=== PATIENT | female | born 1960 | race Two or more races ===

== ENCOUNTER → 2024-10-11 | Outpatient (CLI) | payer OTHER, SELFPAY ==
--- NOTE | 2024-10-11 10:33 | XR_ITS ---
Examination: Knee, right , 3 views Technique: Knee AP, lateral, oblique 3 views Date and time of exam: October 11, 2024 1152 hours INDICATIONS: Knee pain 7 years. FINDINGS: Prominent osteopenia Severe narrowing kivf-te-nini medial joint space No ossified anterior posterior joint bodies subcentimeter Moderate osteoarthritis patellofemoral joint No fracture IMPRESSION: Severe narrowing medial joint space
== END | disposition home or self-care (01) ==
LOC: SDIM 10:26
PROVIDERS: PCP Family Medicine; Referring Provider Orthopaedic Surgery; Visit Provider Orthopaedic Surgery
DX: M25.861 Other specified joint disorders, right knee (principal)
CPT/HCPCS: 73562

== ENCOUNTER 2025-01-18 14:09 | Observation (INO) | payer MEDICAID, SELFPAY ==
--- NOTE | 2025-01-17 10:47 | EKG_ITS ---
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
[2025-01-17 10:57] VITALS: BMI 41.7
[2025-01-17 11:32] LABS: Basophils # (Auto) 0.0 Thou/mm3 (0.0-0.2); Basophils % (Auto) 1 % (0-2.5); Eosinophils # (Auto) 0.2 Thou/mm3 (0.0-0.5); Eosinophils % (Auto) 2 % (0-10); Hematocrit 39.8 % (36.0-46.0); Hemoglobin 13.2 g/dL (12.0-16.0); Immature Granulocytes Auto 0.02 Thou/mm3 (0.00-0.00); Lymphocytes # (Auto) 2.3 Thou/mm3 (1.0-4.8); Lymphocytes % (Auto) 27 % (10-50); Mean Corpuscular HGB Conc 33.2 g/dl (31.0-37.0); Mean Corpuscular Hemoglobin 31.3 pg (25.0-35.0); Mean Corpuscular Volume 94 fL (80-100); Monocytes # (Auto) 0.5 Thou/mm3 (0.0-0.8); Monocytes % (Auto) 6 % (0-12); Neutrophils # (Auto) 5.7 Thou/mm3 (1.8-7.7); Neutrophils % (Auto) 65 % (37-80); Nucleated Red Blood Cell # 0.00 Thou/mm3 (0.00-0.00); Nucleated Red Blood Cell % 0 /100 WBC (0); Platelet Count 269 Thou/mm3 (140-440); RDW Standard Deviation 45.4 fL (36.4-46.3); Red Blood Count 4.22 Miln/mm3 (4.00-5.20); White Blood Count 8.8 Thou/mm3 (3.6-11.0)
[2025-01-17 11:47] LABS: INR 0.9 (0.9-1.3); Partial Thromboplastin Time 26.5 Seconds (22.0-36.0); Prothrombin Time 10.4 Seconds (9.0-12.2)
[2025-01-17 11:59] LABS: Alanine Aminotransferase 20 U/L (10-49); Albumin, Serum 4.7 gm/dL (3.4-4.8); Albumin/Globulin Ratio 1.6 (1.2-2.2); Alkaline Phosphatase 88 U/L (46-116); Anion Gap 13 (7-16); Aspartate Amino Transferase 22 U/L (0-34); BUN/Creatinine Ratio 21 Ratio (12-20); Bilirubin,Total 0.3 mg/dL (0.3-1.2); Blood Urea Nitrogen 17 mg/dL (9-23); Calcium 9.5 mg/dL (8.3-10.6); Calcium (Corrected) 9.5 mg/dL (8.5-10.1); Carbon Dioxide 25.0 mMol/L (20.0-31.0); Chloride 104 mMol/L (98-107); Creatinine (Component) 0.8 mg/dL (0.6-1.3); Estimated Creatinine Clearance 69.9 mL/min (>60); Globulin 3.0 gm/dL (2.3-3.5); Glucose 93 mg/dL (74-106); Osmolality,Calculated 284 (275-295); Potassium 3.6 mMol/L (3.4-5.1); Sodium 142 mMol/L (136-145); Total Protein 7.7 gm/dL (5.7-8.2); eGFR > 60 See Note
[2025-01-18] VITALS (9 sets, daily range): BP systolic 159–180; BP diastolic 78–103; PULSE 65–80; RESP 12–20; TEMP 36.2–36.4; O2SAT 96–100; BMI 41.7; BMI 37.5
--- NOTE | 2025-01-18 13:32 | ESHP_ITS ---
RE: BROOKE ROSARIO : 1960 DATE OF ADMISSION: 01/18/2025 HISTORY AND PHYSICAL: The patient came to my office on 01/13/2025 for detailed preop history and physical examination. HISTORY OF PRESENTING COMPLAINT: The patient has got significant pain in the right knee joint. The intensity of the pain is 8-9/10. The patient is unable to walk more than 1 or 2 blocks. Pain keeps him awake at night. Quality of life and activities of daily living is affected. The patient wants something to be done about it. PAST MEDICAL HISTORY: The patient has a history of diabetes mellitus, high blood pressure. No history of asthma, seizures, chest pain, myocardial infarction, or bleeding disorder. The patient has a high cholesterol. PAST SURGICAL HISTORY: Nil. DRUG HISTORY: The patient is on; 1. Atorvastatin. 2. Hydrochlorothiazide. 3. Hydroxyzine. 4. Losartan. 5. Metformin. 6. Sertraline. 7. Januvia. ALLERGIES: NIL KNOWN. FAMILY HISTORY AND SOCIAL HISTORY: The patient denies smoking, drinking and is not working. PHYSICAL EXAMINATION: GENERAL: Normal built person. VITAL SIGNS: Pulse 88 per minute. Blood pressure is 130/76. NECK: Soft, supple. No masses felt. Trachea is centrally placed. CARDIOVASCULAR SYSTEM: First and second heart sound normal. No murmur heard. RESPIRATORY SYSTEM: Bilateral vesicular breath sounds. CHEST: Clear. ABDOMEN: Soft. No masses felt. Bowel sounds present. EXTREMITIES: Right knee examination revealed 1+ swelling and 2+ tenderness. There is genu varum deformity. Active range of motion 0-100 degrees of flexion. Patellofemoral crepitus is present. The patient walks with a limp. Neurovascularly, it is intact. DIAGNOSTIC DATA: X-ray of the right knee obtained on 10/11/2024 revealed severe osteoarthritic changes with significantly reduced medial and patellofemoral joint space. ASSESSMENT AND PLAN: Since the patient is symptomatic, therefore, a right total knee replacement was discussed and advised. Detailed discussion took place. With the help of knee model, pictures and posters, it was explained to him in detail. All questions were answered. Risks with anesthesia was explained and that includes, but not limited to reaction to anesthetic agents, cardiac arrest, rarely it may be fatal. Risk with operation includes infection and if that happens, the patient may need further surgical procedure. Other risks include delayed healing, wound dehiscence, etc. No guarantee is given regarding the outcome of the procedure and/or relief of symptoms. Sometimes rare complication happens and if that happens, the patient may need further surgical procedure. No guarantees given regarding outcome of the procedure and/or functional outcome or pain relief. Accordingly, surgery is booked for 01/18/2025 in [place]. DT: 13:00:52 TT: 13:30:00 Ref: [id number] - TID: [id number]
--- NOTE | 2025-01-18 14:45 | XR_ITS ---
Examination: Right knee 2 views TECHNIQUE: AP lateral right knee 2 views Date and time: January 18, 2025 1533 hours INDICATIONS: Postop knee replacement today. FINDINGS: Total right knee arthroplasty. Satisfactory alignment Moderate osteopenia. No fracture IMPRESSION: Total right knee arthroplasty with satisfactory alignment
--- NOTE | 2025-01-18 14:45 | ESOP_ITS ---
Date of Procedure 01/18/25 Pre Op Diagnosis Severe DJD right knee joint Post Op Diagnosis Same Procedure Right total knee replacement [place] persona implant. Femur size 6 narrow Tibial baseplate size C Polyethylene size 11 mm MC Patella size 26 mm Findings Patient has significant DJD especially of the medial compartment. Most of the areas of the medial femoral condyle and medial tibial plateau were denuded of cartilage. There is genu varum deformity. Osteophytes were present as well. Patella also showed significant osteoarthritic changes and so did the lateral compartment of the knee Procedure Description The patient was given a general anesthesia. Knee block was also given. Once satisfactory anesthesia was achieved a tourniquet was placed on right upper thigh. Intravenous antibiotics was given at the time of anesthesia. The patient was thoroughly prepped and draped. After using Esmarch the tourniquet pressure was raised to 350 mmHg. A skin incision was made 2 inches proximal to the upper pole of patella going as far down as up to the medial aspect of the tibial tuberosity. The skin was raised as a flap on the site. The bleeding vessels were electrocoagulated as and when encountered. The quadriceps tendon, medial border of the patella and the patellar tendon along the medial aspect of the tibial tuberosity was incised and reflected. The patellar tendon was reflected as much as needed to jareth the patella. The soft tissue from the upper medial border of the tibia was reflected to correct her genu varum deformity. The knee joint was flexed. The anterior cruciate ligament, medial and lateral meniscus were excised. Next para drill hole was made to the inferior surface of the femur. Following that a swab was placed. A 4?? of abduction was already put into it. Following that a cutting block for the inferior cut of the femur was placed and nicely secured with the pins. The swat was removed. The inferior cut of the femur was made and after that the cutting block was removed. Following that a sizer was placed. A decision was made to use size [6] femur implant. 2 drill holes each in 3?? of external rotation were made. The sizer was removed. Size [6] cutting block was placed. Following that anterior, posterior, anterior chamfer and posterior chamfer cuts were made. The cutting block was removed. The knee joint was extended and a 10 mm trial plastic was removed and the intended level of the tibial cut was marked. The knee joint was flexed. With the help of double-pronged the tibia was displaced anteriorly. An extramedullary jig for the cutting block placement of the tibia was placed. The mechanical axis of the zig was parallel to the mechanical axis of the tibia. Following that the tibial cutting block was placed at the desired level and was secured nicely with the help of pins. Following that the tibial cut was made. In this case was posterior cruciate ligament was saved. The cutting block was removed. The spacer was placed and a decision was made to use size [11] polyethylene. The sizing of the tibial baseplate was done and the decision was made to use size [C] tibial baseplate. Following that size [6] trial femur implant was placed in lateralized position and size [C] tibial tibial baseplate along with size [11] medial stabilizer plastic was placed in knee joint was flexed and extended quite a few times and tibial baseplate was allowed to sit wherever it wanted to. The markings were made for the tibial baseplate. 2 drill holes were made for the inferior surface of the femur trial implant. The trial implant was removed and tibial baseplate was placed again with the help of pins. The collar was placed and superior hole was drilled. Following that a fin cut was made. The patella was reamed with [26] mm diameter reamer. [12] mm thickness was left. A collar was placed and 3 drill holes were made. All the trial implant was placed and patellar tracking was checked and found to be good. Lateral release was done at this point. The wound was irrigated with antibiotic solution every 4-5 minutes. Now the power lavage antibiotic solution was used. The knee joint was flexed. The bone were made dry. The cement was mixed. With the help of cement the tibial baseplate was mounted. The excess cement was removed. The femur implant was placed and trial plastic was placed and knee joint was extended. Patella was also mounted with the help of cementing. Excess cement was removed. Osteophytes from the patella was removed at this time. Once the cement was set the tourniquet pressure was released. The bleeding vessels were electrocoagulated. The trial plastic was removed and 11 mm medial stabilizer ultra high molecular weight polyethylene was placed. Closure The quadriceps muscle and medial border of the patella and patellar tendon was closed with the help of 1 strata fix in continuous fashion. The fat layer was closed with 2 strata fix in continuous fashion. The skin was approximated with Monocryl subcu cutaneous stitches in continuous fashion. To cleaning the wound with hydrogen peroxide solution Prineo tape was applied. As trial Was applied. Patient tolerated procedure very well. Estimated blood loss [25] mL. Prognosis in this case is good. This was taken to the recovery room in good condition. Anesthesia GETA and other Pathology / specimen None Estimated Blood Loss 25 Surgeon Bull Elias MD Surgical Staff Operation Date: 01/18/25 12:15 Case Staff COOPER HELPER: Jian Kennedy RN First Assistant: Jackie Lay
--- NOTE | 2025-01-18 15:15 | SUR.PHASEI ---
pt received from OR in recovery bay 7. pt asleep but responds to voice, breathing unlabored on oxymask 8l. v/s stable. pt dressing to right lower extremity cdi. report received from Jian GARRISON and Catarina SAWYER.
[2025-01-18] MEDS: hydrALAZINE INJ 20 MG/ML VIAL 10 MG IVP (15:42)
--- NOTE | 2025-01-18 16:05 | SUR.PHASEI ---
pt asleep but responds to voice, breathing unlabored on 2l nc. v/s stable. pt dressing to right lower extremity cdi. report called to Felisha SAWYER. pt will be transferred to room at this time.
[2025-01-18] MEDS: MORPHINE SULF INJ 10 MG/ML VIAL 4 MG IVP (16:55)
--- NOTE | 2025-01-18 20:02 | PC.NURSE ---
MD Templeton made aware of the consult, per MD will come and see the pts.
--- NOTE | 2025-01-18 20:33 | ESCONSULT_ITS ---
<Statement entered by Hernesto Sher MD - 01/19/25 07:40> I have discussed and was present for the essential components of the history, physical examination, diagnosis, and treatment plan with the resident. I agree with the patient's care as documented by the resident and amended herein by me. Hernesto Sher MD FACP. HPI Data of Consult Requesting Physician: Bull Elias MD Admitting Provider: Juan Elias MD Attending Provider: Bull Elias MD Primary Care Provider: Jeff Fierro MD Consult Narrative Reason for consult: Diabetes and hypertension management History of present illness: 64-year-old female with past medical history of qio-zpgsvwk-tsdkfkkdd type 2 diabetes, hypertension, hyperlipidemia, depression, possible seizure history? Who was admitted by Dr. Elias, orthopedic surgery for a right total knee replacement secondary to severe degenerative disease. Patient apparently only takes metformin 500 mg p.o. twice daily for diabetes and rest of medications as listed under home medications. Regarding the patient's history of seizures, she does not take any medication regularly and states that she only takes a medication when she develops headaches. At this time she is unsure what the name of the medication is but she states that her would know more information about that. During interview, patient states that she has pain secondary to the right knee but otherwise she feels generally fine and denies having any concerning symptoms such as chest pain, shortness of breath, palpitations, dizziness or abdominal pain. cc:: cc: Bull Elias MD Exam Vital Signs Temp Pulse Resp BP Pulse Ox O2 Flow Rate 97.4 F 77 15 159/88 H 98 2 01/18/25 16:00 01/18/25 16:00 01/18/25 16:00 01/18/25 16:00 01/18/25 16:01/18/25 16:00 Narrative Exam Physical Exam: GENERAL: Awake, answering questions appropriately in Syriac, appears stated age HEENT: NC/AT. Moist mucosa. PERRLA/EOMI. CARDIO: Heart RRR, no obvious murmurs, no JVD. PULM: No coughing or visible SOB. Lungs CTA B/L. GI: Abdomen soft, obese, NT/ND, +BS. SKIN/MSK/EXT: Right knee wrapped without any oozing noted from bandage. No wounds/discoloration/rashes/edema/amputations. +Pedal pulses present B/L. NEURO: Oriented x3, Moves extremities x4, no focal neurologic deficits noted. Results Labs 01/18/25 20:46 01/17/25 11:13 Quality Measures Quality Measures VTE prophylaxis Medications Home Medications and Allergies Home Medications ?Medication ?Instructions ?Recorded ?Confirmed ?Type atorvastatin 10 mg tablet 10 mg PO QPM 01/17/25 History hydrochlorothiazide 25 mg tablet 25 mg PO QAM 01/17/25 01/18/25 History hydroxyzine HCl 25 mg tablet 25 mg PO DAILY PRN anxiet y 01/17/25 01/18/25 History losartan 100 mg tablet 100 mg PO QDAY 01/17/2512/22 History metformin 500 mg tablet 500 mg PO BID 01/17/2501/18 History sertraline 25 mg tablet 25 mg PO QDAY 01/17/2501/18 History sitagliptin phosphate 100 mg 100 mg PO QDAY 01/17/25 0 01/18/25 History tablet (Januvia) Allergies Allergy/AdvReac Type Severity Reaction Status Date / Time No Known Allergies Allergy Verified 01/18/25 10:37 Visit Medications Lactated Ringer's (Lactated Ringers) 1,000 mls @ 20 mls/hr IV .Q24H ONE Stop: 01/19/25 05:59 Last Admin: 01/18/25 15:27 Dose: Not Given Cefazolin Sodium/Dextrose (Ancef Ivpb) 1 gm in 50 mls @ 50 mls/hr IV Q8HR AMANUEL Stop: 01/19/25 06:59 Morphine Sulfate (Morphine Sulf Inj 10 Mg/Ml Vial) 4 mg IVP Q4HR PRN PRN Reason: PAIN Stop: 01/23/25 16:20 Last Admin: 01/18/25 16:55 Dose: 4 mg Ondansetron HCl (Ondansetron Inj 2 Mg/Ml Inj 2 Ml) 4 mg IV Q6HR PRN PRN Reason: NAUSEA OR VOMITING Stop: 02/17/25 16:20 Discontinued Medications Albuterol/Ipratropium (Albuterol/Ipratropium (Duoneb) Rt [place] 3 Ml Nebu) 3 ml INH Q4HRRT PRN PRN Reason: SHORTNESS OF BREATH Stop: 01/19/25 13:29 Sodium Chloride 3,000 ml/ (Gentamicin Sulfate 120 mg) 0 ml IRRIG X1 ONE Stop: 01/18/25 11:42 Last Admin: 01/18/25 15:27 Dose: Not Given Fentanyl Citrate (Fentanyl Cit Inj 50 Mcg/Ml Amp 2ml) 50 mcg IVP Q5M PRN PRN Reason: PAIN SCALE 4-6 (Moderate Stop: 01/18/25 15:30 Hydralazine HCl (Hydralazine Inj 20 Mg/Ml Vial) 10 mg IVP X1 ONE Stop: 01/18/25 15:30 Last Admin: 01/18/25 15:42 Dose: 10 mg Hydromorphone HCl (Hydromorphone Inj 2 Mg/Ml Vial) 0.5 mg IVP Q10MIN PRN PRN Reason: severe pain 7-10 Stop: 01/18/25 15:30 Cefazolin Sodium (Ancef 2gm Ivpb) 2 gm in 100 mls @ 100 mls/hr IV X1 ONE Stop: 01/18/25 06:59 Last Admin: 01/18/25 15:39 Dose: Not Given Labetalol HCl (Labetalol Inj 5 Mg/Ml Vial 20 Ml) 5 mg IVP Q10MIN PRN PRN Reason: SBP >180 DBP>100 or HR >100 Stop: 01/18/25 15:30 Metoprolol Tartrate (Metoprolol Tartrate Inj 1 Mg/Ml Amp 5 Ml) 2.5 mg IVP PRN PRN PRN Reason: Heart Rate- High Stop: 01/18/25 15:30 Ondansetron HCl (Ondansetron Inj 2 Mg/Ml Inj 2 Ml) 4 mg IVP X1 ONE; Protocol Stop: 01/18/25 13:31 Promethazine HCl (Promethazine Inj 25 Mg/Ml Vial) 12.5 mg IV Q30M PRN PRN Reason: NAUSEA Assessment & Plan Plan 64-year-old female with past medical history of tzi-vsvydyc-scmrpyrcq type 2 diabetes, hypertension, hyperlipidemia, depression, possible seizure history, admitted by Dr. Elias, orthopedic surgery for a right total knee replacement secondary to severe degenerative disease; hospitalist team consulted for diabetes and hypertension management. #Lrv-rrpcpvj-lhmlteijf type 2 diabetes No A1c on file Patient only on home metformin Plan: Follow-up on morning A1c Sliding scale insulin #Hypertension #Hyperlipidemia Patient has history of hypertension, on antihypertensives Currently somewhat hypertensive likely secondary to right knee pain No lipid panel on file Plan: Restarted home losartan 100 mg p.o. daily; consider restarting HCTZ if necessary Follow-up on lipid panel Consider starting home atorvastatin 10 mg p.o. daily #Right knee replacement #Degenerative joint disease Postop day #0 Plan: Multimodal management Physical therapy Monitor site for any bleeding Orthopedic surgery is primary #Possible seizures #Depression/anxiety Patient on home hydroxyzine for anxiety, sertraline for depression Unsure exactly what medication patient takes for seizures Plan: Restarted home hydroxyzine and sertraline Seizure precautions and IM midazolam as needed for breakthrough seizures Call patient's family regarding this antiseizure medication that she does not regularly take Health Maintenance: Lines: PIV Diet: Carb consistent low Bowel: Senna as needed GI prophylaxis: not needed DVT prophylaxis: not needed for now Dispo: Per orthopedic surgery Code: Full Patient seen and assessed with attending Dr. Christos Templeton, DO PGY-2 Internal Medicine - GME
[2025-01-18] MEDS: HYDROcodone/APAP 5/325 TABLET 1 TAB PO (20:40)
[2025-01-18] MEDS: INSULIN LISPRO (AdmeLOG) 1 UNIT/0.01 ML UNIT SC (20:51)
[2025-01-18 20:59] LABS: Basophils # (Auto) 0.0 Thou/mm3 (0.0-0.2); Basophils % (Auto) 0 % (0-2.5); Eosinophils # (Auto) 0.0 Thou/mm3 (0.0-0.5); Eosinophils % (Auto) 0 % (0-10); Hematocrit 37.8 % (36.0-46.0); Hemoglobin 12.1 g/dL (12.0-16.0); Immature Granulocytes Auto 0.04 Thou/mm3 (0.00-0.00); Lymphocytes # (Auto) 0.8 Thou/mm3 (1.0-4.8); Lymphocytes % (Auto) 6 % (10-50); Mean Corpuscular HGB Conc 32.0 g/dl (31.0-37.0); Mean Corpuscular Hemoglobin 30.6 pg (25.0-35.0); Mean Corpuscular Volume 96 fL (80-100); Monocytes # (Auto) 0.1 Thou/mm3 (0.0-0.8); Monocytes % (Auto) 1 % (0-12); Neutrophils # (Auto) 12.6 Thou/mm3 (1.8-7.7); Neutrophils % (Auto) 93 % (37-80); Nucleated Red Blood Cell # 0.00 Thou/mm3 (0.00-0.00); Nucleated Red Blood Cell % 0 /100 WBC (0); Platelet Count 234 Thou/mm3 (140-440); RDW Standard Deviation 46.6 fL (36.4-46.3); Red Blood Count 3.95 Miln/mm3 (4.00-5.20); White Blood Count 13.6 Thou/mm3 (3.6-11.0)
[2025-01-18] MEDS: ceFAZolin/D5W 1 GM IVPB 1 GM/50 ML BAG IV (21:01)
[2025-01-18 21:22] LABS: Alanine Aminotransferase 20 U/L (10-49); Albumin, Serum 4.3 gm/dL (3.4-4.8); Albumin/Globulin Ratio 1.5 (1.2-2.2); Alkaline Phosphatase 72 U/L (46-116); Anion Gap 11 (7-16); Aspartate Amino Transferase 22 U/L (0-34); BUN/Creatinine Ratio 18 Ratio (12-20); Bilirubin,Total 0.3 mg/dL (0.3-1.2); Blood Urea Nitrogen 18 mg/dL (9-23); Calcium 8.8 mg/dL (8.3-10.6); Calcium (Corrected) 8.8 mg/dL (8.5-10.1); Carbon Dioxide 23.7 mMol/L (20.0-31.0); Chloride 104 mMol/L (98-107); Creatinine (Component) 1.0 mg/dL (0.6-1.3); Estimated Creatinine Clearance 59.6 mL/min (>60); Globulin 2.8 gm/dL (2.3-3.5); Glucose 266 mg/dL (74-106); Osmolality,Calculated 288 (275-295); Potassium 4.5 mMol/L (3.4-5.1); Sodium 139 mMol/L (136-145); Total Protein 7.1 gm/dL (5.7-8.2); eGFR > 60 See Note
[2025-01-19] VITALS (9 sets, daily range): BP systolic 132–164; BP diastolic 63–87; PULSE 67–91; RESP 15–94; TEMP 36.2–36.8; O2SAT 92–98; BMI 12.0
[2025-01-19] MEDS: HYDROcodone/APAP 5/325 TABLET 1 TAB PO ×4 (03:45→22:15)
[2025-01-19 04:49] LABS: Basophils # (Auto) 0.0 Thou/mm3 (0.0-0.2); Basophils % (Auto) 0 % (0-2.5); Eosinophils # (Auto) 0.0 Thou/mm3 (0.0-0.5); Eosinophils % (Auto) 0 % (0-10); Hematocrit 35.1 % (36.0-46.0); Hemoglobin 11.7 g/dL (12.0-16.0); Immature Granulocytes Auto 0.03 Thou/mm3 (0.00-0.00); Lymphocytes # (Auto) 1.2 Thou/mm3 (1.0-4.8); Lymphocytes % (Auto) 11 % (10-50); Mean Corpuscular HGB Conc 33.3 g/dl (31.0-37.0); Mean Corpuscular Hemoglobin 31.8 pg (25.0-35.0); Mean Corpuscular Volume 95 fL (80-100); Monocytes # (Auto) 0.6 Thou/mm3 (0.0-0.8); Monocytes % (Auto) 5 % (0-12); Neutrophils # (Auto) 8.7 Thou/mm3 (1.8-7.7); Neutrophils % (Auto) 83 % (37-80); Nucleated Red Blood Cell # 0.00 Thou/mm3 (0.00-0.00); Nucleated Red Blood Cell % 0 /100 WBC (0); Platelet Count 215 Thou/mm3 (140-440); RDW Standard Deviation 46.0 fL (36.4-46.3); Red Blood Count 3.68 Miln/mm3 (4.00-5.20); White Blood Count 10.5 Thou/mm3 (3.6-11.0)
[2025-01-19] MEDS: ceFAZolin/D5W 1 GM IVPB 1 GM/50 ML BAG IV (05:13)
[2025-01-19 05:17] LABS: Glucose Estimated Average 140 mg/dL (80-131); Hemoglobin A1C 6.5 % Hgb (4.8-6.0)
[2025-01-19 05:18] LABS: Alanine Aminotransferase 16 U/L (10-49); Albumin, Serum 4.0 gm/dL (3.4-4.8); Albumin/Globulin Ratio 1.5 (1.2-2.2); Alkaline Phosphatase 64 U/L (46-116); Anion Gap 12 (7-16); Aspartate Amino Transferase 18 U/L (0-34); BUN/Creatinine Ratio 22 Ratio (12-20); Bilirubin,Total 0.3 mg/dL (0.3-1.2); Blood Urea Nitrogen 20 mg/dL (9-23); Calcium 8.7 mg/dL (8.3-10.6); Calcium (Corrected) 8.7 mg/dL (8.5-10.1); Carbon Dioxide 23.7 mMol/L (20.0-31.0); Chloride 104 mMol/L (98-107); Creatinine (Component) 0.9 mg/dL (0.6-1.3); Estimated Creatinine Clearance 66.2 mL/min (>60); Globulin 2.7 gm/dL (2.3-3.5); Glucose 181 mg/dL (74-106); Osmolality,Calculated 287 (275-295); Potassium 4.3 mMol/L (3.4-5.1); Sodium 140 mMol/L (136-145); Total Protein 6.7 gm/dL (5.7-8.2); eGFR > 60 See Note
--- NOTE | 2025-01-19 08:03 | ESPR_ITS ---
<Statement entered by Ramu Levy MD - 01/22/25 12:40> I reviewed above note and agree with findings and plans. I have also personally examined the patient with medicine team and went over assessment and plan with medical team including internal sales and resident physician. <Statement entered by Donnie Owens MD - 01/20/25 14:22> Patient seen and examined at bedside. I discussed and supervised with the medical student who took care of this patient. I personally saw and examined the patient. I agree with most of the assessment and plan. #T2DM Patient has history of diabetes, not dependant on insulin. HA1c 6.5% as of 01/19/25. - Continue sliding scale lispro and trend glucose until levels return to normal interval - request recheck in A1C at outpt followup w/i 6 months #Hypertension Patient has history of HTN, treated at home with losartan-HCTZ. Remains elevated inpatient. Pt does not report any chest pain, shortness of breath, or chest tightness. - Resume home meds: losartan 100mg daily and HCTZ 25mg daily - Continue to monitor closely - control pain as below #Pain secondary to R total knee replacement procedure Patient reports significant pain in Right knee s/p procedure, but not significantly tender. - Pt currently on [place] 5 PO q4h - Tylenol 650mg PO q6h - Continue with guidance from Primary Surgical team #Hypomagnesemia Pt had magnesium level of 1.2, Mg was repleted - Continue to monitor Plan of care discussed with attending Dr. Levy. Donnie Owens MD PGY-2 Documentation for date of: 01/19/25 Subjective Subjective Interval history: Pt is a 64 y.o F w/ PMH of T2DM, HTN, and hyperlipidemia admitted to the hospital by Dr. Elias w/ significant R knee pain w/ intensity of 8 out of 10 at time of admission. Pain was reported as constant throughout the day and pt states that she has trouble ambulating. Dr Elias proceeded with R total knee replacement and patient remains in hospital post op to manage her HTN and T2DM before discharge. She currently states that she is still in pain predominantly in the prepatellar region and behind the knee after the procedure but does not note any other concerns. She has not had any episodes of nausea, vomiting, or fever while also stating that she hasnt noticed any discharge or abnormal warmth or swelling from her procedure site. Exam Vital Signs Temp Pulse Resp BP Pulse Ox O2 Del Method O2 Flow Rate 97.3 F 87 15 161/84 H 95 Nasal Cannula 2 01/19/25 07:38 01/19/25 07:38 01/19/25 07:38 01/19/25 07:38 01/19/25 07:38 01/19/25 04:00 01/19/25 04:00 Objective Objective Narrative Objective Narrative: Pts vitals are all steady and stable with only blood pressure remaining above the normal threshold at 161/84. A1c was also recorded to be at 6.5 and glucose is trending downward from 266 to 181 after administration of lispro. Labs 01/19/25 04:00 01/19/25 04:00 Labs: Laboratory Results - last 24 hr 01/17/25 01/18/25 01/19/25 11:13 20:46 04:00 WBC 13.6 H D 10.5 RBC 3.95 L 3.68 L Hgb 12.1 11.7 L Hct 37.8 35.1 L MCV 96 95 MCH 30.6 31.8 MCHC 32.0 33.3 RDW Std Deviation 46.6 H 46.0 Plt Count 234 D 215 Neut % (Auto) 93 H 83 H Lymph % (Auto) 6 L 11 [place] % (Auto) 1 5 Eos % (Auto) 0 0 Baso % (Auto) 0 0 Neut # (Auto) 12.6 H 8.7 H Lymph # (Auto) 0.8 L 1.2 [place] # (Auto) 0.1 0.6 Eos # (Auto) 0.0 0.0 Baso # (Auto) 0.0 0.0 Immature Gran # (Auto) 0.04 H 0.03 H Absolute Nucleated RBC 0.00 0.00 Immature Gran % 0 0 Nucleated RBC % 0 0 Sodium 139 140 Potassium 4.5 D 4.3 Chloride 104 104 Carbon Dioxide 23.7 23.7 Anion Gap 11 12 BUN 18 20 Creatinine 1.0 0.9 Estim Creat Clear Calc 59.6 L 66.2 eGFR > 60 > 60 BUN/Creatinine Ratio 18 22 H Glucose 266 H D [address] Glu mg/dL 140 H Hemoglobin A1c 6.5 H Calculated Osmolality 288 287 Calcium 8.8 8.7 Corrected Calcium 8.8 8.7 Total Bilirubin 0.3 0.3 AST 22 18 ALT 20 16 Alkaline Phosphatase 72 64 Total Protein 7.1 6.7 Albumin 4.3 4.0 Globulin 2.8 2.7 Albumin/Globulin Ratio 1.5 1.5 Blood Type O Positive Antibody Screen NEGATIVE Crossmatch See Detail Blood Bank Wristband ID Yes Quality Measures Quality Measures VTE prophylaxis Assessment & Plan Assessment Current Active Medications: Generic Name Dose Route Start Last Admin Trade Name Freq PRN Reason Stop Dose Admin Acetaminophen 650 mg 01/18/25 20:33 Acetaminophen 325 Mg Tablet PO 02/17/25 20:32 Q6HR PRN Pain 1-3 and/or Fever >100.1 Hydrocodone Bitart/Acetaminophen 1 tab 01/18/25 20:33 01/19/25 03:45 Hydrocodone/Apap 5/325 Tablet PO 01/23/25 20:32 1 tab Q4HR PRN Administration Pain 4-6 Dextrose 25 ml 01/18/25 20:34 Dextrose 50%-Water Inj 50 Ml Syringe IV 02/17/25 20:33 Q15MIN PRN BG 50-70 responsive npo pt Dextrose 50 ml 01/18/25 20:34 Dextrose 50%-Water Inj 50 Ml Syringe IV 02/17/25 20:33 Q15MIN PRN BG <50 OR BG <70 & pt unresponsive Glucagon 1 mg 01/18/25 20:34 Glucagon Inj 1 Mg Vial IM Q15MIN PRN BG <70, and no IV access Hydroxyzine HCl 25 mg 01/18/25 20:37 Hydroxyzine Hcl 25 Mg Tablet PO 02/17/25 20:36 DAILY PRN anxiety Lactated Ringer's 500 mls @ 75 mls/hr 01/19/25 07:37 Lactated Ringers IV 01/19/25 14:16 .Q6H40M ONE Insulin Human Lispro 0 unit 01/18/25 21:00 01/18/25 20:51 Insulin Lispro (Admelog) 1 Unit/0.01 Ml Unit SC 02/17/25 20:59 3 unit ACHS AMANUEL Administration Protocol Losartan Potassium 100 mg 01/19/25 09:00 Losartan Potassium 25 Mg Tablet PO 02/18/25 08:59 QDAY AMANUEL Midazolam HCl 2 mg 01/18/25 20:41 Midazolam Inj 1 Mg/Ml Vial 2 Ml IV 01/23/25 20:40 Q30M PRN Breakthrough Seizure Morphine Sulfate 4 mg 01/18/25 20:34 Morphine Sulf Inj 10 Mg/Ml Vial IVP 01/23/25 16:20 Q4HR PRN Pain 7-10 Ondansetron HCl 4 mg 01/18/25 16:21 Ondansetron Inj 2 Mg/Ml Inj 2 Ml IV 02/17/25 16:20 Q6HR PRN NAUSEA OR VOMITING Sennosides 1 tab 01/18/25 21:15 Senna Tablet PO 02/17/25 21:14 QDAY PRN CONSTIPATION Protocol Sertraline HCl 25 mg 01/19/25 09:00 Sertraline Hcl 25 Mg Tablet PO 02/18/25 08:59 QDAY AMANUEL Plan T2DM - Continue sliding scale lispro and trend glucose until levels return to normal interval - request recheck in A1C at outpt followup w/i 6 months - Consider starting outpatient insulin- pt currently does not take insulin outpatient Hypertension: - Start Hydralazine- started by Dr. Vigil and we will continue to monitor. Pt does not report any chest pain, shortness of breath, or chest tightness. - BP recheck q8 - ensure post-discharge followup w/ PCP to synchronize BP control Pain 2ndary to R total knee replacement procedure: - Pt currently on [place] PO q4, a Tylenol was also ordered to assist with pain relief. - Continue with guidance from Primary Surgical team Hypomagnesemia - Pt had magnesium level of 1.2, Mg was repleted and will continue to be monitored
[2025-01-19 08:13] LABS: Magnesium 1.2 mg/dL (1.6-2.6); Phosphorous 2.7 mg/dL (2.4-5.1)
--- NOTE | 2025-01-19 08:15 | PC.NURSE ---
call to distribution for 500 mL bag of LR
[2025-01-19] MEDS: LOSARTAN POTASSIUM 25 MG TABLET 100 MG PO (08:44)
[2025-01-19] MEDS: Magnesium Sulfate 4 GM Ivpb 4 GM/50 ML BAG IV (08:44)
[2025-01-19] MEDS: SERTRALINE HCL 25 MG TABLET PO (08:44)
[2025-01-19] MEDS: MORPHINE SULF INJ 10 MG/ML VIAL 4 MG IVP ×2 (08:55→21:10)
--- NOTE | 2025-01-19 09:53 | PC.SS ---
Patient Gali Perea is a 64 Year old female admitted to the Med[facility] unit. SS met with patient at bedside to discuss discharge plan and verify demographic information. Patient reports she lives at home with her , Juan Perea who she reports is her surrogate decision maker, [phone]. Patient reports that prior to admission she did not utilize any source of DME to assist with ambulation, patient is able to complete all ADL's independently. Patient's PCP is Jeff Fierro. At time of discharge patient will return home, patient's will provide transportation. Next of kin: , Juan Perea Discharge Plan: Home
[2025-01-19] MEDS: LACTULOSE SYRUP 20 GM/30 ML UDC 30 GM PO (10:43)
[2025-01-19] MEDS: RINGERS LACTATED 1000 ML 500 ML 75 ML IV (10:44)
--- NOTE | 2025-01-19 14:27 | PC.SS ---
SS follow up note; BP being monitored, pending Dr Elias clearance. Patient will discharge home when medically cleared.
[2025-01-19] MEDS: ACETAMINOPHEN IVPB 1,000 MG/100 ML VIAL 250 MG IV (14:36)
[2025-01-19] MEDS: INSULIN LISPRO (AdmeLOG) 1 UNIT/0.01 ML UNIT SC ×2 (18:01→20:26)
[2025-01-19] MEDS: ATORVASTATIN CALCIUM 10 MG TABLET PO (20:25)
--- NOTE | 2025-01-19 22:25 | PC.NURSE ---
Pt complaints of not being relieve by her pain meds, Morphine 4mg was administered an hour ago and pts wanting another pain meds, [place] 5mg PO given, she's saying that her pain is not being controlled, MD Nugent made aware, will adjust her [place] dose.
[2025-01-20] VITALS (10 sets, daily range): BP systolic 122–176; BP diastolic 73–94; PULSE 74–90; RESP 16–96; TEMP 36.1–36.6; O2SAT 91–95; BMI 11.0
[2025-01-20 05:32] LABS: Basophils # (Auto) 0.0 Thou/mm3 (0.0-0.2); Basophils % (Auto) 0 % (0-2.5); Eosinophils # (Auto) 0.0 Thou/mm3 (0.0-0.5); Eosinophils % (Auto) 0 % (0-10); Hematocrit 35.3 % (36.0-46.0); Hemoglobin 11.5 g/dL (12.0-16.0); Immature Granulocytes Auto 0.03 Thou/mm3 (0.00-0.00); Lymphocytes # (Auto) 2.1 Thou/mm3 (1.0-4.8); Lymphocytes % (Auto) 19 % (10-50); Mean Corpuscular HGB Conc 32.6 g/dl (31.0-37.0); Mean Corpuscular Hemoglobin 30.8 pg (25.0-35.0); Mean Corpuscular Volume 95 fL (80-100); Monocytes # (Auto) 0.9 Thou/mm3 (0.0-0.8); Monocytes % (Auto) 8 % (0-12); Neutrophils # (Auto) 7.7 Thou/mm3 (1.8-7.7); Neutrophils % (Auto) 72 % (37-80); Nucleated Red Blood Cell # 0.00 Thou/mm3 (0.00-0.00); Nucleated Red Blood Cell % 0 /100 WBC (0); Platelet Count 215 Thou/mm3 (140-440); RDW Standard Deviation 45.7 fL (36.4-46.3); Red Blood Count 3.73 Miln/mm3 (4.00-5.20); White Blood Count 10.7 Thou/mm3 (3.6-11.0)
[2025-01-20 06:03] LABS: Alanine Aminotransferase 11 U/L (10-49); Albumin, Serum 4.1 gm/dL (3.4-4.8); Albumin/Globulin Ratio 1.5 (1.2-2.2); Alkaline Phosphatase 65 U/L (46-116); Anion Gap 3 (7-16); Aspartate Amino Transferase 15 U/L (0-34); BUN/Creatinine Ratio 21 Ratio (12-20); Bilirubin,Total 0.5 mg/dL (0.3-1.2); Blood Urea Nitrogen 17 mg/dL (9-23); Calcium 8.9 mg/dL (8.3-10.6); Calcium (Corrected) 8.9 mg/dL (8.5-10.1); Carbon Dioxide 27.8 mMol/L (20.0-31.0); Chloride 103 mMol/L (98-107); Creatinine (Component) 0.8 mg/dL (0.6-1.3); Estimated Creatinine Clearance 74.4 mL/min (>60); Globulin 2.7 gm/dL (2.3-3.5); Glucose 160 mg/dL (74-106); Magnesium 1.5 mg/dL (1.6-2.6); Osmolality,Calculated 272 (275-295); Phosphorous 2.1 mg/dL (2.4-5.1); Potassium 3.7 mMol/L (3.4-5.1); Sodium 134 mMol/L (136-145); Total Protein 6.8 gm/dL (5.7-8.2); eGFR > 60 See Note
[2025-01-20] MEDS: INSULIN LISPRO (AdmeLOG) 1 UNIT/0.01 ML UNIT SC ×4 (07:27→20:05)
--- NOTE | 2025-01-20 08:19 | ESPR_ITS ---
<Statement entered by Ramu Levy MD - 01/22/25 12:41> I reviewed above note and agree with findings and plans. I have also personally examined the patient with medicine team and went over assessment and plan with medical team including paralegal internship and resident physician. <Statement entered by Donnie Owens MD - 01/20/25 17:31> Patient seen and examined at bedside. I discussed and supervised with the paralegal internship physician who took care of this patient. I personally saw and examined the patient. I agree with most of the assessment and plan. #T2DM: Fasting glucose remains within reference range with spikes in glucose levels seen postprandial. Hb A1c was 6.5 on 01/19/25 - continue sliding scale insulin. Add 2 units of lispro with meals due to elevated nonfasting glucose levels post-prandially - Will Sign off on this patient #HTN: Multiple readings of BP > 150 systolic observed. Home meds resumed. - Home medications of Losartan 100 mg PO Qday and Hydrochlorothiazide 12.5 mg PO Qday. - Addition of Amlodipine 10 mg to current regimen. - Will Sign off on this patient #Post op pain secondary to procedure: Pt states pain is much improved compared to yesterday. - Continue current management with Robards PO Q4 and IV Acetominophen 1000 mg/ 100 ml at 250ml/hr Q6 hrs. #HLD: - Continue home meds of Atorvostatin 20mg Given improvement in patients DM and HTN, will sign off on this patient. Thank you for the opportunity to participate in the care of this patient. Plan of care discussed with attending Dr. Levy. Donnie Owens MD PGY-2 Documentation for date of: 01/20/25 Subjective Subjective Interval history: Pt currently states that her pain is much improved in comparison to yesterday. she rates her current level of pain at a 4 out of 10. She states that she has not noticed any abnormal discharge, warmth, swelling, or bleeding from her procedure site. She denies any other constitutional symptoms such as fever, nausea, and vomiting Exam Vital Signs Temp Pulse Resp BP Pulse Ox O2 Del Method O2 Flow Rate 97.8 F 85 17 176/83 H 94 L Room Air 2 01/20/25 08:00 01/20/25 08:00 01/20/25 08:00 01/20/25 08:00 01/20/25 08:00 01/20/25 08:00 01/19/25 04:00 Objective Objective Narrative Objective Narrative: Pt is Alert and Oriented x4. Shows no signs of cognitive impairment. Pt has clear breath sounds bilaterally and Cardiac exam shows regular rate and rhythm.Abdomen is soft and nontender. Exam of operative site on R lower extremity appears dry with no erythema, tenderness, swelling or discharge noted. Pt denies any pain or abnormal pressure sensation in the operative region and has no other concerns at this time. Labs 01/20/25 04:55 01/20/25 04:55 Labs: Laboratory Results - last 24 hr 01/20/25 04:55 WBC 10.7 RBC 3.73 L Hgb 11.5 L Hct 35.3 L MCV 95 MCH 30.8 MCHC 32.6 RDW Std Deviation 45.7 Plt Count 215 Neut % (Auto) 72 Lymph % (Auto) 19 [place] % (Auto) 8 Eos % (Auto) 0 Baso % (Auto) 0 Neut # (Auto) 7.7 Lymph # (Auto) 2.1 [place] # (Auto) 0.9 H Eos # (Auto) 0.0 Baso # (Auto) 0.0 Immature Gran # (Auto) 0.03 H Absolute Nucleated RBC 0.00 Immature Gran % 0 Nucleated RBC % 0 Sodium 134 L Potassium 3.7 D Chloride 103 Carbon Dioxide 27.8 Anion Gap 3 L BUN 17 Creatinine 0.8 Estim Creat Clear Calc 74.4 eGFR > 60 BUN/Creatinine Ratio 21 H Glucose 160 H Calculated Osmolality 272 L Calcium 8.9 Corrected Calcium 8.9 Phosphorus 2.1 L Magnesium 1.5 L Total Bilirubin 0.5 AST 15 ALT 11 Alkaline Phosphatase 65 Total Protein 6.8 Albumin 4.1 Globulin 2.7 Albumin/Globulin Ratio 1.5 Quality Measures Quality Measures VTE prophylaxis Assessment & Plan Assessment Current Active Medications: Generic Name Dose Route Start Last Admin Trade Name Freq PRN Reason Stop Dose Admin Acetaminophen 650 mg 01/18/25 20:33 Acetaminophen 325 Mg Tablet PO 02/17/25 20:32 Q6HR PRN Pain 1-3 and/or Fever >100.1 Hydrocodone Bitart/Acetaminophen 1 tab 01/19/25 22:51 01/20/25 07:32 Hydrocodone/Apap 10/325 Tab PO 01/24/25 22:50 1 tab Q4HR PRN Administration Pain 4-6 Atorvastatin Calcium 10 mg 01/19/25 21:00 01/19/25 20:25 Atorvastatin Calcium 10 Mg Tablet PO 02/18/25 20:59 10 mg HS AMANUEL Administration Dextrose 25 ml 01/18/25 20:34 Dextrose 50%-Water Inj 50 Ml Syringe IV 02/17/25 20:33 Q15MIN PRN BG 50-70 responsive npo pt Dextrose 50 ml 01/18/25 20:34 Dextrose 50%-Water Inj 50 Ml Syringe IV 02/17/25 20:33 Q15MIN PRN BG <50 OR BG <70 & pt unresponsive Glucagon 1 mg 01/18/25 20:34 Glucagon Inj 1 Mg Vial IM Q15MIN PRN BG <70, and no IV access Hydrochlorothiazide 25 mg 01/19/25 10:30 01/19/25 10:43 Hydrochlorothiazide 12.5 Mg Capsule PO 02/18/25 10:29 25 mg QAM AMANUEL Administration Hydroxyzine HCl 25 mg 01/18/25 20:37 01/19/25 23:34 Hydroxyzine Hcl 25 Mg Tablet PO 02/17/25 20:36 25 mg DAILY PRN Administration anxiety Magnesium Sulfate 4 gm in 50 mls @ 12.5 mls/hr 01/20/25 07:59 Magnesium Sulfate Ivpb IV 01/20/25 11:58 X1 ONE Insulin Human Lispro 0 unit 01/18/25 21:00 01/20/25 07:27 Insulin Lispro (Admelog) 1 Unit/0.01 Ml Unit SC 02/17/25 20:59 1 unit ACHS AMANUEL Administration Protocol Insulin Human Lispro 2 unit 01/20/25 11:30 Insulin Lispro (Admelog) 1 Unit/0.01 Ml Unit SC 02/19/25 11:29 AC AMANUEL Losartan Potassium 100 mg 01/19/25 08:25 01/19/25 08:44 Losartan Potassium 25 Mg Tablet PO 02/18/25 08:24 100 mg QDAY AMANUEL Administration Midazolam HCl 2 mg 01/18/25 20:41 Midazolam Inj 1 Mg/Ml Vial 2 Ml IV 01/23/25 20:40 Q30M PRN Breakthrough Seizure Morphine Sulfate 4 mg 01/18/25 20:34 01/19/25 21:10 Morphine Sulf Inj 10 Mg/Ml Vial IVP 01/23/25 16:20 4 mg Q4HR PRN Administration Pain 7-10 Ondansetron HCl 4 mg 01/18/25 16:21 Ondansetron Inj 2 Mg/Ml Inj 2 Ml IV 02/17/25 16:20 Q6HR PRN NAUSEA OR VOMITING Sennosides 1 tab 01/18/25 21:15 Senna Tablet PO 02/17/25 21:14 QDAY PRN CONSTIPATION Protocol Sertraline HCl 25 mg 01/19/25 09:00 01/19/25 08:44 Sertraline Hcl 25 Mg Tablet PO 02/18/25 08:59 25 mg QDAY AMANUEL Administration Plan #T2DM: Fasting glucose remains within reference range with spikes in glucose levels seen postprandial. Hb A1c was 6.5 on 01/19/25. Will sign off on this patient. - continue sliding scale insulin. Add 2 units of lispro with meals due to elevated nonfasting glucose levels post-prandially #HTN: Multiple readings of BP > 150 systolic observed. Will Sign off on this patient - Current medications of Losartan 100 mg PO Qday and Hydrochlorothiazide 12.5 mg PO Qday. Addition of Amlodipine 10 mg to current regimen. #HLD: - Continue home meds of Atorvostatin 20mg #Post op pain secondary to procedure: - Pt states pain is much improved in relation with past. Continue current management with Robards PO Q4 and IV Acetominophen 1000 mg/ 100 ml at 250ml/hr Q6 hrs. Plan was discussed with Senior resident Dr. Streeter and attending Physician Dr. Cam Morataya ([facility]) Medical Student
[2025-01-20] MEDS: NAPH,KPH MBDB 1 PACKET (1.5 GM) PO (08:45)
[2025-01-20] MEDS: SERTRALINE HCL 25 MG TABLET PO (08:45)
[2025-01-20] MEDS: LOSARTAN POTASSIUM 25 MG TABLET 100 MG PO (08:45)
[2025-01-20] MEDS: Magnesium Sulfate 4 GM Ivpb 4 GM/50 ML BAG IV (08:46)
[2025-01-20] MEDS: INSULIN LISPRO (AdmeLOG) 1 UNIT/0.01 ML UNIT 2 UNIT SC ×2 (11:45→17:34)
--- NOTE | 2025-01-20 13:30 | CHAP ---
Patient was visited by the Spiritual Care Volunteer who prayed for them. (Volunteer was in the hospital from 10:20-13:30)
[2025-01-20] MEDS: ATORVASTATIN CALCIUM 10 MG TABLET PO (20:06)
[2025-01-21] VITALS (10 sets, daily range): BP systolic 101–127; BP diastolic 69–84; PULSE 74–98; RESP 16–93; TEMP 36.1–36.5; O2SAT 92–95
[2025-01-21 06:13] LABS: Basophils # (Auto) 0.0 Thou/mm3 (0.0-0.2); Basophils % (Auto) 0 % (0-2.5); Eosinophils # (Auto) 0.1 Thou/mm3 (0.0-0.5); Eosinophils % (Auto) 1 % (0-10); Hematocrit 34.3 % (36.0-46.0); Hemoglobin 11.1 g/dL (12.0-16.0); Immature Granulocytes Auto 0.03 Thou/mm3 (0.00-0.00); Lymphocytes # (Auto) 1.8 Thou/mm3 (1.0-4.8); Lymphocytes % (Auto) 19 % (10-50); Mean Corpuscular HGB Conc 32.4 g/dl (31.0-37.0); Mean Corpuscular Hemoglobin 30.7 pg (25.0-35.0); Mean Corpuscular Volume 95 fL (80-100); Monocytes # (Auto) 0.7 Thou/mm3 (0.0-0.8); Monocytes % (Auto) 7 % (0-12); Neutrophils # (Auto) 6.5 Thou/mm3 (1.8-7.7); Neutrophils % (Auto) 71 % (37-80); Nucleated Red Blood Cell # 0.00 Thou/mm3 (0.00-0.00); Nucleated Red Blood Cell % 0 /100 WBC (0); Platelet Count 212 Thou/mm3 (140-440); RDW Standard Deviation 45.9 fL (36.4-46.3); Red Blood Count 3.62 Miln/mm3 (4.00-5.20); White Blood Count 9.1 Thou/mm3 (3.6-11.0)
[2025-01-21 07:25] LABS: Alanine Aminotransferase < 7 U/L (10-49); Albumin, Serum 4.0 gm/dL (3.4-4.8); Albumin/Globulin Ratio 1.5 (1.2-2.2); Alkaline Phosphatase 64 U/L (46-116); Anion Gap 11 (7-16); Aspartate Amino Transferase 13 U/L (0-34); BUN/Creatinine Ratio 26 Ratio (12-20); Bilirubin,Total 0.6 mg/dL (0.3-1.2); Blood Urea Nitrogen 21 mg/dL (9-23); Calcium 8.7 mg/dL (8.3-10.6); Calcium (Corrected) 8.7 mg/dL (8.5-10.1); Carbon Dioxide 28.4 mMol/L (20.0-31.0); Chloride 98 mMol/L (98-107); Creatinine (Component) 0.8 mg/dL (0.6-1.3); Estimated Creatinine Clearance 74.4 mL/min (>60); Globulin 2.7 gm/dL (2.3-3.5); Glucose 147 mg/dL (74-106); Magnesium 2.5 mg/dL (1.6-2.6); Osmolality,Calculated 279 (275-295); Phosphorous 2.7 mg/dL (2.4-5.1); Potassium 3.6 mMol/L (3.4-5.1); Sodium 137 mMol/L (136-145); Total Protein 6.7 gm/dL (5.7-8.2); eGFR > 60 See Note
[2025-01-21] MEDS: INSULIN LISPRO (AdmeLOG) 1 UNIT/0.01 ML UNIT 2 UNIT SC ×3 (07:40→17:04)
[2025-01-21] MEDS: LOSARTAN POTASSIUM 25 MG TABLET 100 MG PO (09:28)
[2025-01-21] MEDS: SERTRALINE HCL 25 MG TABLET PO (09:28)
--- NOTE | 2025-01-21 14:28 | PC.SS ---
SS follow up note; Pending Dr. Elias's clearance. Patient will discharge home when medically cleared, no needs.
--- NOTE | 2025-01-21 16:48 | PC.NURSE ---
Spoke to Dr Marie over the phone in regards to pts discharge plan. Per MD this pt should have been discharged on day 2 post op. Therefore given telephone dc orders for this pt and f/u appointment on friday to see him.
--- NOTE | 2025-01-21 16:57 | PC.NURSE ---
Upon discharge orders noted there was no pain medication prescribed. MD Marie called to verify pain medications prescribed. 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 Pt made aware of the need to pickers material handlers pain medication as stated by MD Marie.
[2025-01-21] MEDS: INSULIN LISPRO (AdmeLOG) 1 UNIT/0.01 ML UNIT SC (17:03)
--- NOTE | 2025-01-21 17:24 | PC.NURSE ---
Per pt called her pharmacy no pain prescription was sent by MD Marie. Therefore pt is refusing to leave hospital without any pain medication. Made MD Marie per MD he cannot access or prescribe for pt d/t being on vacation. Current situation discussed with Charge nurse Demario. Now being evaluated
--- NOTE | 2025-01-21 19:26 | PC.NURSE ---
Pt went home accompanied by with private vehicle. Pt has no c/o of pain at this time.
== END 2025-01-21 19:25 | disposition home or self-care (01) ==
LOC: S3SX 16:39
PROVIDERS: Anesthesiology; Admitting Provider Orthopaedic Surgery; PCP Family Medicine; Referring Provider Orthopaedic Surgery; Visit Provider Internal Medicine
PROC: (CPT 27447; principal; 2025-01-18 12:00)
DX: M17.11 Unilateral primary osteoarthritis, right knee (principal); R56.9 Unspecified convulsions; E11.9 Type 2 diabetes mellitus without complications; E78.5 Hyperlipidemia, unspecified; E83.42 Hypomagnesemia; F32.A Depression, unspecified; F41.9 Anxiety disorder, unspecified; G89.18 Other acute postprocedural pain; I10 Essential (primary) hypertension; Z79.899 Other long term (current) drug therapy; Z79.84 Long term (current) use of oral hypoglycemic drugs; Z79.4 Long term (current) use of insulin; Z01.810 Encounter for preprocedural cardiovascular examination
CPT/HCPCS: 27447; 36415; 73562; 80053; 83036; 83735; 84100; 85025; 85610; 85730; 86850; 86900; 86901; 86923; 87081; 93005; 96365; 96366; 96375; 96376; 97163; A4217; C1713; C1776; G0378; J0131; J0360; J0689; J0690; J1100; J1171; J1580; J1815; J2270; J2371; J2405; J2704; J2795; J3010; J3475; J3490; J7120; A9270